=== PATIENT | male | born 1960 | race Caucasian/White ===

== ENCOUNTER 2020-12-11 16:15 | Emergency (ER) | payer OTHER ==
[~2020-12-11] VITALS: Ht 193 cm; Wt 108.9 kg
[~2020-12-11 16:15] MED LIST: Cipro500 MG PO; LISHYD1012 PO
[2020-12-11 17:35] LABS: Calcium, Ionized (POC) 1.17 mmol/L (1.10-1.46); Chloride (POC) 105 mmol/L (98-108); Creatinine (POC) 1.6 mg/dL (0.8-1.3); Glucose (ISTAT POC) 123 mg/dL (70-99); Potassium (POC) 4.5 mmol/L (3.5-5.5); Sodium (POC) 137 mmol/L (135-148); Total CO2 (POC) 22 mmol/L (21-32)
[2020-12-11] MEDS ORDERED: Percocet 5-3251 EACH PO (19:41)
== END 2020-12-11 19:47 | disposition left against medical advice (07) ==
LOC: ER 16:15
PROVIDERS: Physician Assistant
DX: S22.41XA Multiple fractures of ribs, right side, initial encounter for closed fracture (principal); S27.321A Contusion of lung, unilateral, initial encounter; S30.811A Abrasion of abdominal wall, initial encounter; V86.96XA Unspecified occupant of dirt bike or motor/cross bike injured in nontraffic accident, initial encounter; Z88.0 Allergy status to penicillin; Z79.899 Other long term (current) drug therapy; I10 Essential (primary) hypertension; E78.5 Hyperlipidemia, unspecified
CPT/HCPCS: 36415; 71101; 71260; 74160; 80047; 85014; 96374-59; 96376-59; 99284-25; J3010; Q9967